=== PATIENT | male | born 1950 | race African-American/Black ===

== ENCOUNTER 2016-10-06 10:43 | Inpatient (IN) | payer MEDICARE ==
[2016-10-06] MEDS ORDERED: ASPIRIN 81 MG TABLET, CHEWABLE PO ONE (10:57)
--- NOTE | 2016-10-06 11:04 | ER Document Report ---
[id number] SYNCOPE Mode of Arrival: Ambulatory Information source: Patient Notes: 66 yr old presents by ems for presyncope, pt noted ot have headache. on arrival pt is quite confused, does not know his name, where he is. Patient denies any chest pain shortness breath difficulty breathing TRAVEL OUTSIDE OF THE [place] IN LAST 30 DAYS: No - HPI Onset: Just prior to arrival Onset/Duration: Sudden Quality of pain: No pain Severity: Mild Pain Level: Denies Associated symptoms: None Exacerbated by: Denies Relieved by: Denies Similar symptoms previously: No Recently seen / treated by doctor: No - Related Data Allergies/Adverse Reactions: Penicillins Allergy (Intermediate, Verified 05/06/16 21:17) Itching Past Medical History - Social History Smoking Status: Never Smoker Cigarette use (# per day): No Chew tobacco use (# tins/day): No Smoking Education Provided: No Family History: Reviewed & Not Pertinent - Past Medical History Cardiac Medical History: Reports: Hx Coronary Artery Disease, Hx Hypercholesterolemia, Hx Hypertension Pulmonary Medical History: Denies: Hx Tuberculosis Endocrine Medical History: Reports: Hx Diabetes Mellitus Type 2 Malignancy Medical History: Reports Hx Prostate Cancer Psychiatric Medical History: Reports: Hx Depression Past Surgical History: Reports: Hx Coronary Stent, Hx Orthopedic Surgery - left knee replacement - Immunizations Hx Diphtheria, Pertussis, Tetanus Vaccination: No Hx Pneumococcal Vaccination: 07/24/11 Review of Systems - Review of Systems Notes: REVIEW OF SYSTEMS: CONSTITUTIONAL : Denies fever, chills, or sweats. Denies recent illness. EENT: Denies eye, ear, throat, or mouth pain or symptoms. Denies nasal or sinus congestion or discharge. Denies throat, tongue, or mouth swelling or difficulty swallowing. CARDIOVASCULAR: Denies chest pain. Denies palpitations or racing or irregular heart beat. Denies ankle edema. RESPIRATORY: Denies cough, cold, or chest congestion. Denies shortness of breath, difficulty breathing, or wheezing. GASTROINTESTINAL: Denies abdominal pain or distention. Denies nausea, vomiting , or diarrhea. Denies blood in vomitus, stools, or per rectum. Denies black, tarry stools. Denies constipation. GENITOURINARY: Denies difficulty urinating, painful urination, burning, frequency, blood in urine, or discharge. MUSCULOSKELETAL: Denies back or neck pain or stiffness. Denies joint pain or swelling. SKIN: Denies rash, lesions or sores. HEMATOLOGIC : Denies easy bruising or bleeding. LYMPHATIC: Denies swollen, enlarged glands. NEUROLOGICAL: Admits to confusion PSYCHIATRIC: Denies anxiety or stress. Denies depression, suicidal ideation, or homicidal ideation. ALL OTHER SYSTEMS REVIEWED AND NEGATIVE. Dictation was performed using [employer] voice recognition software PHYSICAL EXAMINATION: GENERAL: Well-appearing, well-nourished and in no acute distress. HEAD: Atraumatic, normocephalic. EYES: Pupils equal round and reactive to light, extraocular movements intact, sclera anicteric, conjunctiva are normal. ENT: Nares patent, oropharynx clear without exudates. Moist mucous membranes. NECK: Normal range of motion, supple without lymphadenopathy LUNGS: Breath sounds clear to auscultation bilaterally and equal. No wheezes rales or rhonchi. HEART: Regular rate and rhythm without murmurs ABDOMEN: Soft, nontender, nondistended abdomen. No guarding, no rebound. No masses appreciated. Musculoskeletal: Normal range of motion, no pitting or edema. No cyanosis. NEUROLOGICAL: Initially confused not oriented to person or place or time, orientation improves while on the emergency department PSYCH: Normal mood, normal affect. SKIN: Warm, Dry, normal turgor, no rashes or lesions noted. Physical Exam - Vital signs Vitals: Temp Pulse BP Pulse Ox 98.0 F 59 L 148/93 H 97 10/06/16 10:49 10/06/16 10:49 10/06/16 10:49 10/06/16 10:49 Course - Re-evaluation Re-evalutation: 10/06/16 11:04 Patient appears quite confused, CT head ordered emergent gently 10/06/16 13:40 Patient's mentation has improved significantly however he does not remember having seen me 3 times now. Patient is noted to have some acute renal insufficiency and acute EKG changes. Patient will be admitted to hospital service for further evaluation and care of his altered mental status and lab and EKG abnormalities 10/06/16 15:33 - Vital Signs Vital signs: Temp Pulse Resp BP Pulse Ox 98.0 F 59 L 12 158/79 H 99 10/06/16 10:49 10/06/16 10:49 10/06/16 12:27 10/06/16 12:27 10/06/16 12:27 - Laboratory Result Diagrams: 10/06/16 11:25 10/06/16 11:25 Laboratory results interpreted by me: 10/06/16 10/06/16 10/06/16 11:10 11:25 11:25 RDW 14.9 H Carbon Dioxide 31 H BUN 28 H Creatinine 1.65 H Est GFR ( Amer) 51 L Est GFR (Non-Af Amer) 42 L POC Glucose 111 H - Diagnostic Test Radiology reviewed: Image reviewed, Reports reviewed - EKG Interpretation by Me EKG shows normal: Sinus rhythm, [place], Intervals, QRS Complexes, ST-T Waves - Inverted T waves noted in leads 1 aVL and V5 V6, aVL previous bleed was noted to be inverted from April 2016 the other changes are acute Discharge - Discharge Clinical Impression: Encephalopathy acute, EPIFANIO (acute kidney injury), Acute electrocardiography changes Hypertension Qualifiers: Hypertension type: essential hypertension Qualified Code(s): I10 - Essential ( primary) hypertension Coronary artery disease Qualifiers: Coronary Disease-Associated Artery/Lesion type: [place] artery [place] vs. transplanted heart: [place] heart Associated angina: without angina Qualified Code(s): I25.10 - Atherosclerotic heart disease of [place] coronary artery without angina pectoris Condition: Stable Disposition: ADMITTED INPATIENT Admitting Provider: Hospitalist Unit Admitted: Telemetry
[2016-10-06 11:41] LABS: ABSOLUTE EOSINOPHILS # (AUTO) 0.1 10^3/uL (0.0-0.6); ABSOLUTE LYMPHOCYTES (AUTO) 1.5 10^3/uL (0.5-4.7); ABSOLUTE MONOCYTES (AUTO) 0.3 10^3/uL (0.1-1.4); ABSOLUTE NEUT (AUTO) 3.4 10^3/uL (1.7-8.2); BASOPHILS % (AUTO) 0.8 % (0-2); EOSINOPHILS % (AUTO) 2.1 % (0-6); HEMATOCRIT 44.3 % (37.9-51.0); HEMOGLOBIN 14.6 g/dL (13.5-17.0); HGB HCT DIFFERENCE -0.5; MEAN CORPUSCULAR HEMOGLOBIN 27.2 pg (27.0-33.4); MEAN CORPUSCULAR HGB CONC 32.9 g/dL (32.0-36.0); MEAN CORPUSCULAR VOLUME 83 fl (80-97); MONOCYTES % (AUTO) 5.9 % (3-13); RED BLOOD COUNT 5.36 10^6/uL (4.35-5.55); RED CELL DISTRIBUTION WIDTH 14.9 % (11.5-14.0); SEGMENTED NEUTROPHILS % (AUTO) 63.2 % (42-78); WHITE BLOOD COUNT 5.3 10^3/uL (4.0-10.5)
[2016-10-06 12:02] LABS: ALBUMIN 4.4 g/dL (3.5-5.0); ANION GAP 10 (5-19); BILIRUBIN,TOTAL 0.6 mg/dL (0.2-1.3); CALCIUM 9.6 mg/dL (8.4-10.2); CARBON DIOXIDE 31 mmol/L (22-30); CHLORIDE 98 mmol/L (98-107); CREATINE KINASE 108 U/L (55-170); CREATININE RESULT 1.65 mg/dL (0.52-1.25); GLUCOSE 97 mg/dL (75-110); SODIUM 139.2 mmol/L (137-145); TOTAL PROTEIN 7.2 g/dL (6.3-8.2)
[2016-10-06 12:05] LABS: ALKALINE PHOSPHATASE 68 U/L (38-126); ASPARTATE AMINO TRANSFERASE 23 U/L (17-59); BLOOD UREA NITROGEN 28 mg/dL (7-20)
[2016-10-06 12:06] LABS: ALANINE AMINOTRANSFERASE 26 U/L (21-72)
[2016-10-06 12:11] LABS: CREATINE KINASE MB 1.19 ng/mL (<4.55)
[2016-10-06 12:15] LABS: TROPONIN I < 0.012 ng/mL
[2016-10-06] MEDS ORDERED: NORMAL SALINE 1000 ML 1,000 ML IV ONE (12:15)
[2016-10-06 12:51] LABS: APPEARANCE,URINE CLEAR; BILIRUBIN,URINE NEGATIVE (NEGATIVE); GLUCOSE, URINE NEGATIVE (NEGATIVE); KETONES,URINE NEGATIVE (NEGATIVE); LEUKOCYTE ESTERASE,URINE NEGATIVE (NEGATIVE); NITRITE,URINE NEGATIVE (NEGATIVE); PROTEIN,URINE NEGATIVE (NEGATIVE); URINE SPECIFIC GRAVITY 1.004; UROBILINOGEN,URINE NEGATIVE mg/dL (<2.0)
[2016-10-06] MEDS ORDERED: DEXTROSE 50%-WATER 25 GM/50 ML DISP.SYRIN IV PRN ×2 (14:30)
[2016-10-06] MEDS ORDERED: GLUCAGON,HUMAN RECOMB 1 MG INJ IM PRN (14:30)
[2016-10-06] MEDS ORDERED: INSULIN LISPRO 100 UNIT/ML 3 ML VIAL SUBCUT PRN (14:30)
[2016-10-06] MEDS ORDERED: DEXTROSE 40% GEL 15 GM TUBE PO PRN ×2 (14:30)
--- NOTE | 2016-10-06 15:15 | PDOC H&P ---
History of Present Illness Admission Date/PCP: 10/06/2015 CIERRA DIEHL Patient complains of: Syncope History of Present Illness: ISA LUGO is a 66 year old -Thai male with a past medical history of coronary artery disease, prostate surgery, and diabetes. The patient presented to the emergency department via EMS for presyncope. According to the patient the morning of presentation he felt quite weak. The patient remembers driving to his primary care provider's office, [facility], and describes himself passing out while walking into the building. Patient states that he remembers being awakened by a couple passing by but does not remember the EMS trip to the facility. The patient was seen in the examined by the ER provider on 3 separate occasions and each time the patient did not remember the previous occasion. 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 The patient was found to have an elevated creatinine. Upon my assessment of the patient his symptoms had improved the patient was able to state his name and whereabouts and so forth but was a little delayed. Patient describes himself as "foggy headed". Patient denies any chest pain shortness breath difficulty breathing. Patient was also found to be hypertensive. In review of previous EKG it appears the patient has had some changes in the past year. In comparison to previous EKG it appears the patient does have T-wave inversion in leads one vee five. Initial set of cardiac enzymes are found to be unremarkable the patient was given a liter of fluid as well as aspirin and was referred to the hospitalist remission and management head CT was also unremarkable. The patient has had a history of robotic prostate surgery the patient has had UTIs in the past but denies any symptoms of urinary retention. When the patient presented to the emergency department a Oseguera was placed without issue and without significant retention to be found. MEDICATIONS: The medications listed in this document may have been auto- populated from previous contact and may not been verified or reconciled. This may not be an accurate reflection of the patient's home medication(s); however, authors are unable to edit or delete the medications listed in this document as "home medications". Past Medical History Cardiac Medical History: Reports: Coronary Artery Disease, Hyperlipidema, Hypertension Endocrine Medical History: Reports: Diabetes Mellitus Type 2 Musculoskeltal Medical History: Reports: Arthritis Psychiatric Medical History: Reports: Depression Past Surgical History Past Surgical History: Reports: Coronary Stent, Orthopedic Surgery - left knee replacement, Other - Robotic prostate surgery Social History Information Source: Patient Occupation: Retired Lives with: Alone Smoking Status: Current Some Day Smoker Number of Years Smokin Last Time Smoked: 10/06/2016 Frequency of Alcohol Use: None Hx Recreational Drug Use: Yes Drugs: Marijuana - Advance Directive Resuscitation Status: Full Code Surrogate healthcare decision maker:: Echo Ferrell, Sister Family History Family History: Reviewed & Not Pertinent, CAD, CVA, DM, Hypertension Parental Family History Reviewed: Yes Children Family History Reviewed: NA Sibling(s) Family History Reviewed.: Yes Medication/Allergy Home Medications: Amlodipine/Valsartan [Exforge 5-160 mg Tablet] 1 tab PO DAILY #30 tablet Ascorbic Acid [Vitamin C] 1,500 mg PO DAILYP PRN #90 07/08/13 Atorvastatin Calcium [Lipitor] 20 mg PO DAILY #30 tab 07/08/13 Docusate Sodium [Stool Softener] 2 cap PO BID #120 cap 07/08/13 Fluticasone Propionate [Flonase Nasal [place] 50 Mcg/[place] 16 gm] 1 spray NASL DAILYP PRN #1 bottle 07/08/13 Metformin HCl [Glucophage 500 mg Tablet] 500 mg PO BID #60 07/08/13 Oxybutynin Chloride 5 mg PO BID #60 07/08/13 Ibuprofen 800 mg PO Q8HP PRN #30 tablet 03/03/14 Methocarbamol [Robaxin 500 mg Tablet] 500 mg PO BID PRN #30 tablet 03/03/14 Tramadol HCl [Ultram] 50 mg PO Q6HP PRN #20 tablet 03/03/14 Hydrochlorothiazide 25 mg PO DAILY #30 tablet 05/07/16 Allergies/Adverse Reactions: Penicillins Allergy (Intermediate, Verified 05/06/16 21:17) Itching Review of Systems Constitutional: PRESENT: fatigue, weakness. ABSENT: chills, fever(s), headache( s), weight gain, weight loss Eyes: ABSENT: visual disturbances Ears: ABSENT: hearing changes Nose, Mouth, and Throat: PRESENT: headache(s) Cardiovascular: PRESENT: edema. ABSENT: chest pain, dyspnea on exertion, orthropnea, palpitations Respiratory: ABSENT: cough, hemoptysis Gastrointestinal: ABSENT: abdominal pain, constipation, diarrhea, hematemesis, hematochezia, nausea, vomiting Genitourinary: ABSENT: dysuria, hematuria Musculoskeletal: PRESENT: muscle weakness. ABSENT: joint swelling Integumentary: ABSENT: rash, wounds Neurological: PRESENT: confusion. ABSENT: abnormal gait, abnormal speech, dizziness, focal weakness, syncope Psychiatric: ABSENT: anxiety, depression, homidical ideation, suicidal ideation Endocrine: ABSENT: cold intolerance, heat intolerance, polydipsia, polyuria Hematologic/Lymphatic: ABSENT: easy bleeding, easy bruising Physical Exam Vital Signs: Temp Pulse Resp BP Pulse Ox 98.0 F 59 L 12 158/79 H 99 10/06/16 10:49 10/06/16 10:49 10/06/16 12:27 10/06/16 12:27 10/06/16 12:27 General appearance: PRESENT: no acute distress, cooperative, well-developed, well-nourished Head exam: PRESENT: atraumatic, normocephalic Eye exam: PRESENT: conjunctiva pink, EOMI, PERRLA. ABSENT: scleral icterus Ear exam: PRESENT: normal external ear exam Mouth exam: PRESENT: moist, tongue midline Neck exam: ABSENT: carotid bruit, JVD, lymphadenopathy, thyromegaly Respiratory exam: PRESENT: clear to auscultation ihsan. ABSENT: rales, rhonchi, wheezes Cardiovascular exam: PRESENT: RRR. ABSENT: diastolic murmur, rubs, systolic murmur Pulses: PRESENT: normal dorsalis pedis pul Vascular exam: PRESENT: normal capillary refill GI/Abdominal exam: PRESENT: normal bowel sounds, soft. ABSENT: distended, guarding, mass, organolmegaly, rebound, tenderness Rectal exam: PRESENT: deferred Extremities exam: PRESENT: full ROM, pedal edema, +1 edema. ABSENT: calf tenderness, clubbing Neurological exam: PRESENT: alert, awake, oriented to person, oriented to place , oriented to time, oriented to situation, CN II-XII grossly intact, other - A little delayed, short term memory loss. ABSENT: motor sensory deficit Psychiatric exam: PRESENT: appropriate affect, normal mood. ABSENT: homicidal ideation, suicidal ideation Skin exam: PRESENT: dry, intact, warm. ABSENT: cyanosis, rash Results Laboratory Results: 10/06/16 11:25 10/06/16 11:25 10/06/16 10/06/16 10/06/16 11:25 11:25 12:15 WBC 5.3 RBC 5.36 Hgb 14.6 Hct 44.3 MCV 83 MCH 27.2 MCHC 32.9 RDW 14.9 H Plt Count 194 Seg Neutrophils % 63.2 Lymphocytes % 28.0 Monocytes % 5.9 Eosinophils % 2.1 Basophils % 0.8 Absolute Neutrophils 3.4 Absolute Lymphocytes 1.5 Absolute Monocytes 0.3 Absolute Eosinophils 0.1 Absolute Basophils 0.0 Sodium 139.2 Potassium 4.0 Chloride 98 Carbon Dioxide 31 H Anion Gap 10 BUN 28 H Creatinine 1.65 H Est GFR ( Amer) 51 L Est GFR (Non-Af Amer) 42 L Glucose 97 Calcium 9.6 Total Bilirubin 0.6 AST 23 ALT 26 Alkaline Phosphatase 68 Total Protein 7.2 Albumin 4.4 Urine Color COLORLESS Urine Appearance CLEAR Urine pH 7.0 Ur Specific [place] 1.004 Urine Protein NEGATIVE Urine Glucose (UA) NEGATIVE Urine Ketones NEGATIVE Urine Blood NEGATIVE Urine Nitrite NEGATIVE Ur Leukocyte Esterase NEGATIVE Urine WBC (Auto) 0 Urine RBC (Auto) 0 10/06/16 10/06/16 11:25 11:25 Creatine Kinase 108 CK-MB (CK-2) 1.19 Troponin I < 0.012 Impressions: Chest X-Ray 10/06/16 10:58 IMPRESSION: No significant interval change. No acute findings. Other findings as noted above Head CT 10/06/16 11:01 IMPRESSION: CHRONIC CHANGES OF ATROPHY AND MICROVASCULAR ISCHEMIA. Old lacunar infarcts in the region of the basal ganglia bilaterally. NO ACUTE PROCESS. Assessment & Plan - Diagnosis (1) Syncope Qualifiers: Syncope type: unspecified Qualified Code(s): R55 - Syncope and collapse Is this a current diagnosis for this admission?: YesPlan: Will obtain workup including carotids and echocardiogram. Pending the patient' s symptoms may obtain MRI. (2) EPIFANIO (acute kidney injury) Is this a current diagnosis for this admission?: YesPlan: Uncertain of the exact etiology of this. The patient has received a liter of fluid. Will hold nephrotoxic medications for now and repeat creatinine in the a.m. Given the patient's mild pitting edema and uncertain EF a.m. leery of significant volume resuscitation. However the patient does not appear to be overloaded. Most likely the patient does have an underlying CKG but previous creatinines are in the 1.1 range (3) Coronary artery disease Qualifiers: Coronary Disease-Associated Artery/Lesion type: [place] artery [place] vs. transplanted heart: [place] heart Associated angina: without angina Qualified Code(s): I25.10 - Atherosclerotic heart disease of [place] coronary artery without angina pectoris Is this a current diagnosis for this admission?: YesPlan: Will continue home meds once reconcilable. The patient appears to have had EKG changes. Will obtain echocardiogram and repeat EKG in the a.m. Also add a magnesium level. (4) Encephalopathy acute Is this a current diagnosis for this admission?: YesPlan: The exact etiology of this. Head CT does reveal old lacunar infarct. Will continue aspirin. Gently hydrate. And follow. (5) Hypertension Qualifiers: Hypertension type: essential hypertension Qualified Code(s): I10 - Essential (primary) hypertension Is this a current diagnosis for this admission?: YesPlan: Will resume home medications once reconcilable. (6) Left shoulder pain Qualifiers: Chronicity: acute Qualified Code(s): M25.512 - Pain in left shoulder Is this a current diagnosis for this admission?: YesPlan: Secondary to fall will image the patient in follow. (7) Prostatic hyperplasia Is this a current diagnosis for this admission?: YesPlan: The patient has had prostate surgery in the past. Currently has indwelling Oseguera. Will have this removed in the a.m. and monitor for evidence of retention. The patient did not have a significant amount of urine in his bladder on presentation. - Time Time Spent: 50 to 70 Minutes Medications reviewed and adjusted accordingly: Yes Anticipated discharge: Home Within: within 24 hours, within 48 hours - Inpatient Certification Based on my medical assessment, after consideration of the patient's comorbidities, presenting symptoms, or acuity I expect that the services needed warrant INPATIENT care.: Yes I certify that my determination is in accordance with my understanding of Medicare's requirements for reasonable and necessary INPATIENT services [42 CFR 412.3e].: Yes Medical Necessity: Need For IV Fluids, Need For Continuous Telemetry Monitoring Post Hospital Care: D/C or Transfer Summary
--- NOTE | 2016-10-06 18:46 | XCELERA REPORT ---
[address] [address] Transthoracic Echocardiogram Report Name: ISA LUGO Age: 66 yrs Gender: Male : 1950 Patient Status: Inpatient Patient Location: \S\ED18\S\A Study Date: 10/06/2016 03:09 PM Height: 67 in Weight: 228 lb BSA: 2.1 m2 Procedure: A complete two-dimensional transthoracic echocardiogram was performed (2D, M-mode, spectral and color flow Doppler). The study was technically difficult with many images being suboptimal in quality. Reason For Study: Syncope, edema Ordering Physician: DINH DENTON Performed By: Tania Corral Interpretation Summary The left ventricular ejection fraction is normal. There is mild concentric left ventricular hypertrophy. The left ventricle is grossly normal size. Doppler measurements suggest pseudonormalized left ventricular relaxation, which is associated with grade II/IV or mild to moderate diastolic dysfunction Wall motion cannot be accurately commented on, but no definite regional wall motion abnormalities noted. The right ventricular systolic function is normal. The right atrium is mildly dilated. The left atrium is mildly dilated. There is no mitral valve stenosis. There is a trace amount of mitral regurgitation There is no aortic valve stenosis No aortic regurgitation is present. There is a trace or physiologic amount of tricuspid regurgitation Tricuspid regurgitation jet envelope not well defined to measure RV systolic pressure accurately. The aortic root is not well visualized but is probably normal size. The inferior vena cava appeared normal and decreased < 50% with respiration (RAP 10-15 mmHg) There is no pericardial effusion. MMode/2D Measurements \T\ Calculations RVDd: 2.6 cm LVIDd: 4.8 cm FS: 39.2 % Ao root diam: 3.4 cm IVSd: 1.1 cm LVIDs: 2.9 cm EDV(Teich): 109.4 ml LVPWd: 1.1 cm ESV(Teich): 33.3 ml Ao root area: 9.1 cm2 EF(Teich): 69.6 % LA dimension: 4.1 cm Doppler Measurements \T\ Calculations MV E max nicole: MV P1/2t max nicole: Ao V2 max: LV V1 max P.2 cm/sec 61.2 cm/sec 122.5 cm/sec 6.7 mmHg MV A max nicole: MV P1/2t: 93.8 msec Ao max PG: LV V1 max: 69.6 cm/sec 6.0 mmHg 129.3 cm/sec MV E/A: 0.88 MVA(P1/2t): 2.3 cm2 MV dec slope: 191.2 cm/sec2 MV dec time: 0.30 sec PA V2 max: 86.4 cm/sec PA max P.0 mmHg Left Ventricle The left ventricle is grossly normal size. There is mild concentric left ventricular hypertrophy. The left ventricular ejection fraction is normal. Doppler measurements suggest pseudonormalized left ventricular relaxation, which is associated with grade II/IV or mild to moderate diastolic dysfunction. Wall motion cannot be accurately commented on, but no definite regional wall motion abnormalities noted. Right Ventricle The right ventricle is grossly normal size. There is normal right ventricular wall thickness. The right ventricular systolic function is normal. Atria The right atrium is mildly dilated. The left atrium is mildly dilated. Interarterial septum not well visualized and not well dopplered. Cannot comment on ASD/PFO presence. Mitral Valve The mitral valve is grossly normal. There is no mitral valve stenosis. There is a trace amount of mitral regurgitation. Aortic Valve The aortic valve is mildly calcified. There is no aortic valve stenosis. No aortic regurgitation is present. Tricuspid Valve The tricuspid valve is not well visualized, but is grossly normal. There is no tricuspid stenosis. There is a trace or physiologic amount of tricuspid regurgitation. Tricuspid regurgitation jet envelope not well defined to measure RV systolic pressure accurately. Pulmonic Valve The pulmonic valve is not well visualized. Great Vessels The aortic root is not well visualized but is probably normal size. The inferior vena cava appeared normal and decreased < 50% with respiration (RAP 10-15 mmHg). Effusions There is no pericardial effusion. : DINH DENTON > David Nixon
[2016-10-06] MEDS: METOPROLOL TARTRATE 25 MG TABLET PO SCH (21:10)
[2016-10-06] MEDS: HEPARIN SOD (PORCINE) 5,000 UNIT/ML 1 ML SYRINGE SUBCUT SCH (21:10)
[2016-10-06] MEDS: FLUTICASONE NASAL SPRAY 50 MCG/SPRY 120 SPRAY/16 GM NASL SCH (21:11)
--- NOTE | 2016-10-06 21:44 | EKG REPORT ---
SEVERITY:- ABNORMAL ECG - SINUS RHYTHM PROBABLE INFERIOR INFARCT, OLD BORDERLINE T WAVE ABNORMALITIES LATERAL LEADS ARE ALSO INVOLVED : Confirmed by: David Nixon 06-Oct-2016 21:43:54
[2016-10-07] MEDS: HEPARIN SOD (PORCINE) 5,000 UNIT/ML 1 ML SYRINGE SUBCUT SCH ×3 (05:48→23:00)
[2016-10-07 07:16] LABS: ANION GAP 8 (5-19); BLOOD UREA NITROGEN 30 mg/dL (7-20); CALCIUM 9.4 mg/dL (8.4-10.2); CARBON DIOXIDE 29 mmol/L (22-30); CHLORIDE 103 mmol/L (98-107); CREATININE RESULT 1.47 mg/dL (0.52-1.25); GLUCOSE 98 mg/dL (75-110); POTASSIUM 3.6 mmol/L (3.6-5.0)
[2016-10-07] MEDS: METOPROLOL TARTRATE 25 MG TABLET PO SCH ×2 (09:58→23:08)
--- NOTE | 2016-10-07 17:04 | Physician Advisory Note ---
Physician Advisor ProgressNote .: Pursuant to the plan for [facility], I have reviewed the medical record for this patient. Physician Advisor Statement: Possible documentation opportunities if attending agrees: 1. "Medical necessity": syncope, AMS, & EPIFANIO are typically Outpt Obs dx.s. Please document explicitly the reasons this pt was felt to need Inpt care (r.e. severity of illness & intensity of service), for at least 2MNs rather than getting some IVF & watching for a night & then following up outpt - or else change to Outpt Obs, please. - Is the Cr being not yet back to baseline enough to warrant further tx before considering d/c safe? (If so, what being done about it on 10/07?) Are there new issues 10/07 that require further eval/tx? ... - What was being seen/done on 10/07 that required pt to still be kept in hospital that night, when vitals weren't bad, carotids/echo not bad, & pt oriented & alert with no abnormal findings per both 10/07 nursing assessment reports? 2. "Acute cerebrovascular insufficiency" or "cerebral ischemia" related to decreased intravascular fluid volume status? 3. "Adverse effect of Lasix, correctly prescribed & properly administered [vs given/taken in error], causing "? As always, if concerned about any unstable VS or abnormal labs, please comment on them & note what doing about them, & please document each day the potential clinical problems you are concerned could occur if pt not kept in hospital for tx at this time. Discussion: 66yo male w/ chronic co-morbidities including CAD w/stent, HTN, DM-2, prostate CA/surg, depression, tobacco x50 yrs - presented AM to ED w/BUSTAMANTE, confusion to the point he didn't know own name or where he was, presyncope vs syncope. Had reportedly passed out while walking into 's office building, didn't remember trip w/EMS. May have had a recent increase in Lasix dose, (+) T98, HR 59, R12, BP 148/93, CBC WNL, bicarb 31, BUN 28, Cr 1.65 (baseline 1.1), glc 111, U/A neg, EKG w/TWinversions lat leads, CT head = multivessel white matter ischemic changes, old lacunar strokes of bilat basal ganglia, no acute findings. ED gave 1L IVF, ASA, & head CT. "Orientation improved whilte in ED" per ED provider, but despite improvement, he still didn't recognize ED dr by 13:40 after he had seen him 3x already. Still "foggy headed" & "delayed" in responses for H&P eval. (+)edema, short term memory loss. Attending ordered carotid dopplers, ECHO, Mag level, repeat EKG, metoprolol 25mg q12h (continued from home), I/Os, daily wts, tele monitoring, bedrest. Uncomfortable (reasonably so) giving further IVF immediately, given (+) edema & unknown EF. Lasix, spironolactone, & KCl were held. Status: Syncope/presyncope, BUSTAMANTE, AMS are all most appropriate for Outpt Obs status initially, until attending documentation proves otherwise. After arrival, pt's carotid dop & ECHO did not show cause for repeated syncope or AMS. Mental status appears to have returned to baseline. Trop I's neg x2. Bicarb down to 29. However, Cr still quite above baseline. Eval by PT on 10/07 afternoon found pt a (+)falls risk still, with standing impaired, pt c/o lightheadedness & dizziness during ambulation. Pt's diuretics continued to be held, allowing for very gentle increase in overall fluid volume. Tx in inpatient hospital setting medically reasonable & necessary to protect pt' s health, safety, & medical condition? Thanks for your help with documentation accuracy/specificity improvement! Princess Dexter MD [facility] Physician Advisor, Fellow of Hospital Medicine
[2016-10-07] MEDS ORDERED: ACETAMINOPHEN 325 MG TABLET PO PRN (20:05)
[2016-10-07] MEDS: FLUTICASONE NASAL SPRAY 50 MCG/SPRY 120 SPRAY/16 GM NASL SCH (23:00)
[2016-10-07] MEDS: ACETAMINOPHEN 325 MG TABLET PO PRN (23:39)
--- NOTE | 2016-10-07 23:51 | EKG REPORT ---
SEVERITY:- ABNORMAL ECG - SINUS RHYTHM LEFT AXIS DEVIATION ABNORMAL T, CONSIDER ISCHEMIA, LATERAL LEADS : Confirmed by: David Nixon 07-Oct-2016 23:50:41
[2016-10-08] MEDS ORDERED: AMLODIPINE BESYLATE 5 MG TABLET PO ONE (05:30)
[2016-10-08] MEDS: HEPARIN SOD (PORCINE) 5,000 UNIT/ML 1 ML SYRINGE SUBCUT SCH (05:39)
[2016-10-08] MEDS: METOPROLOL TARTRATE 25 MG TABLET PO SCH (09:23)
[2016-10-08] MEDS: ACETAMINOPHEN 325 MG TABLET PO PRN (09:30)
[2016-10-08] MEDS ORDERED: TRAMADOL HCL 50 MG TABLET PO PRN (09:57)
[2016-10-08 10:50] LABS: ANION GAP 9 (5-19); BLOOD UREA NITROGEN 23 mg/dL (7-20); CALCIUM 10.2 mg/dL (8.4-10.2); CARBON DIOXIDE 28 mmol/L (22-30); CHLORIDE 102 mmol/L (98-107); CREATININE RESULT 1.13 mg/dL (0.52-1.25); GLUCOSE 107 mg/dL (75-110); POTASSIUM 3.6 mmol/L (3.6-5.0); SODIUM 139.2 mmol/L (137-145)
[2016-10-08 15:31] VITALS: BP 156/77
--- NOTE | 2016-10-08 15:44 | PDOC DISCHARGE SUMMARY ---
General - Admit/Disc Date/PCP Admission Date/Primary Care Provider: 10/06/16 14:22 CIERRA DIEHL Discharge Date: 10/08/16 - Additional Information Resuscitation Status: Full Code Discharge Diet: Cardiac Discharge Activity: Activity As Tolerated, No Driving Home Medications: Azilsartan Med/Chlorthalidone [Edarbyclor 40-25 mg Tablet] 1 tab PO DAILY Fluticasone Propionate [Flonase Nasal [place] 50 Mcg/[place] 16 gm] 1 spray NASL QHS 10/06/16 Furosemide [Lasix] 40 mg PO BID 10/06/16 Metformin HCl [Glucophage] 500 mg PO BIDBS 10/06/16 Metoprolol Tartrate [Lopressor 25 mg Tablet] 25 mg PO BID 10/06/16 Acetaminophen [Tylenol 325 mg Tablet] 650 mg PO Q6HP PRN tablet 10/08/16 Tramadol HCl [Ultram 50 mg Tablet] 50 mg PO Q4HP PRN #20 tablet 10/08/16 History of Present Illness Patient complains of: Confusion, headache, shortness of breath and chest pain History of Present Illness: ISA LUGO is a 66 year old male with past medical history of coronary artery disease, prostate surgery and diabetes mellitus type II. Presented to the emergency department by EMS for presyncope on 10/06/2016. Cord to the patient on the morning of his presentation he felt quite weak. The patient remembers driving to his primary care provider's office at [facility], and describes himself passing out while walking into the building. Patient states he remembers being awakened by a couple passing by but does not remember the EMS checked the facility. Patient was found to be on 3 different diuretics , Lasix, hydrochlorothiazide, chlorthalidone. He was noted to have an elevated BUN/creatinine. He said speak dehydrated and was rehydrated with IV fluids. EKG showed T-wave inversions in the V1 through V5, these were noted compared to an old EKG. Patient has noted himself pain foggy headed and forgetful over the last couple months. He has no prior history of CVA. ER workup included CT of the head showed an old left lacunar infarct. He was referred to the hospitalist service for admission. Hospital Course Hospital Course: Patient was referred to the hospitalist service he was admitted to telemetry. He had serial troponins which were unremarkable for any acute coronary syndrome. In no further chest pain. His mends remained negative. He did have periods of confusion in the morning as well as headaches. Overnight he had more confusion but was pleasant and cooperative. As the night before on his confusion lessened. This morning he is completely oriented. He complains of frontal headaches we will add some Ultram. MRI was done today which showed significant small vessel disease in the old left lacunar infarct. Patient does not meet criteria for inpatient. We did discuss with family members our concerns regarding his small vessel disease and progressive vascular dementia. He was instructed not to drive or operate any machinery until he is seen again by his family physician next week. He'll also have home health care for [facility] to make sure he is taking medications as directed. Physical Exam Vital Signs: Temp Pulse Resp BP Pulse Ox 97.8 F 50 L 18 156/77 H 98 10/08/16 14:45 10/08/16 14:45 10/08/16 14:45 10/08/16 14:45 10/08/16 14:45 Intake & Output 10/07/16 10/08/16 10/09/16 06:59 06:59 06:59 Intake Total 545 2768 800 Output Total 2500 3500 400 Balance -1955 -732 400 Weight 104.7 kg 104.7 kg General appearance: PRESENT: no acute distress, well-developed, well-nourished Head exam: PRESENT: atraumatic, normocephalic Eye exam: PRESENT: conjunctiva pink, EOMI, PERRLA. ABSENT: scleral icterus Ear exam: PRESENT: normal external ear exam Mouth exam: PRESENT: moist, tongue midline Neck exam: ABSENT: carotid bruit, JVD, lymphadenopathy, thyromegaly Respiratory exam: PRESENT: clear to auscultation ihsan. ABSENT: rales, rhonchi, wheezes Cardiovascular exam: PRESENT: RRR. ABSENT: diastolic murmur, rubs, systolic murmur Pulses: PRESENT: normal dorsalis pedis pul Vascular exam: PRESENT: normal capillary refill GI/Abdominal exam: PRESENT: normal bowel sounds, soft. ABSENT: distended, guarding, mass, organolmegaly, rebound, tenderness Rectal exam: PRESENT: deferred Extremities exam: PRESENT: full ROM. ABSENT: calf tenderness, clubbing, pedal edema Neurological exam: PRESENT: alert, awake, oriented to person, oriented to place , oriented to time, oriented to situation, CN II-XII grossly intact. ABSENT: motor sensory deficit Psychiatric exam: PRESENT: appropriate affect, normal mood. ABSENT: homicidal ideation, suicidal ideation Skin exam: PRESENT: dry, intact, warm. ABSENT: cyanosis, rash Results Laboratory Results: 10/08/16 10:22 10/08/16 10:22 Sodium 139.2 Potassium 3.6 Chloride 102 Carbon Dioxide 28 Anion Gap 9 BUN 23 H Creatinine 1.13 Est GFR ( Amer) > 60 Est GFR (Non-Af Amer) > 60 Glucose 107 Calcium 10.2 10/06/16 19:25 Troponin I < 0.012 Impressions: Carotid Doppler Study 10/06/16 00:00 IMPRESSION: NO HEMODYNAMICALLY SIGNIFICANT STENOSIS. Shoulder X-Ray 10/06/16 00:00 IMPRESSION: NEGATIVE STUDY OF THE LEFT SHOULDER. NO RADIOGRAPHIC EVIDENCE OF ACUTE INJURY. Chest X-Ray 10/06/16 10:58 IMPRESSION: No significant interval change. No acute findings. Other findings as noted above Head CT 10/06/16 11:01 IMPRESSION: CHRONIC CHANGES OF ATROPHY AND MICROVASCULAR ISCHEMIA. Old lacunar infarcts in the region of the basal ganglia bilaterally. NO ACUTE PROCESS. Head MRI 10/08/16 09:55 IMPRESSION: No definite acute changes. Extensive chronic small vessel disease as above. Qualifiers P[place]INT BEING DISCHARGED WITH ANY OF THE FOLLOWING DIAGNOSIS?: No Plan Discharge Plan: Home with family members Time Spent: Less than 30 Minutes
== END 2016-10-08 16:00 | disposition home health service (06) | DRG 312 ==
LOC: ER 10:43 → EH 14:22 → UNDOADMIN 16:02 → EH 16:02 → 4W 17:30 → 5 10-07 04:26
DX: R55 Syncope and collapse (principal); G93.40 Encephalopathy, unspecified; N17.9 Acute kidney failure, unspecified; R07.9 Chest pain, unspecified; R51 Headache; E86.0 Dehydration; M25.512 Pain in left shoulder; N40.0 Benign prostatic hyperplasia without lower urinary tract symptoms; E11.9 Type 2 diabetes mellitus without complications; I25.10 Atherosclerotic heart disease of native coronary artery without angina pectoris; E78.5 Hyperlipidemia, unspecified; I10 Essential (primary) hypertension; M19.90 Unspecified osteoarthritis, unspecified site; F32.9 Major depressive disorder, single episode, unspecified; Z79.899 Other long term (current) drug therapy; Z95.5 Presence of coronary angioplasty implant and graft; Z96.652 Presence of left artificial knee joint; F17.200 Nicotine dependence, unspecified, uncomplicated; Z88.0 Allergy status to penicillin
CPT/HCPCS: 36415; 70450; 70551; 71010; 80048; 80053; 81001; 82550; 82553; 82962; 83735; 84484; 85025; 93005; 93010; 93306; 93880; 96360; 99285; G8978-GP; G8979-GP; J1644; J3490; J7030

== ENCOUNTER → 2017-07-10 | Outpatient (CLI) | payer MEDICARE, MEDICAID ==
--- NOTE | 2017-07-10 13:30 | RADIOLOGY REPORT (SQ) ---
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 The route of agent administration: Intravenous. ADDITIONAL DRUGS AND DOSES: None. TECHNIQUE: Routine delayed images at 3 hours post radionuclide injection acquired of the bony skelet on including anterior and posterior whole-body projections and additional focused images as needed. LIMITATIONS: None. FINDINGS: BONES: Photopenia in the left knee suggesting a knee arthroplasty. The small focal area i ncreased uptake the proximal right humerus on the earlier study is no longer evident. No significant areas of abnormal uptake are present. KIDNEYS: Symmetric excretion without obstruction. OTHER: No other significant finding. IMPRESSION: There is no evidence of metastatic disease to bone. COMMENT: Quality measure 147: Current bone scan is compared with any available plain radiographs, p rior bone scans, and CT/MRI. TECHNICAL DOCUMENTATION: JOB ID: [id number] [employer]- All Rights Reserved
== END ==
LOC: RAD 07:50
PROVIDERS: ATTEND Internal Medicine Medical Oncology
DX: C61 Malignant neoplasm of prostate (principal)
CPT/HCPCS: 78306; A9561; Q9969